=== PATIENT | male | born 1960 | race Caucasian/White ===

== ENCOUNTER 2021-04-23 13:24 | Emergency (ER) | payer MEDICAID ==
[~2021-04-23] VITALS: Ht 177.8 cm; Wt 81.6 kg
[2021-04-23 13:30] VITALS: BP_SYST 140
--- NOTE | 2021-04-23 13:30 | NUR ---
Pt to tent for evaluation.
--- NOTE | 2021-04-23 13:35 | NUR ---
Pt is unvaccinated and reports headaches, body aches, fatigue, feels disoriented X 7 days. Pt denies any prior medical history and denies pain currently.
--- NOTE | 2021-04-23 14:05 | NUR ---
Dr. El to tent to evaluate.
--- NOTE | 2021-04-23 14:15 | NUR ---
Pt refused Covid swab.
[2021-04-23] MEDS ORDERED: IBUP-1969 PO (14:28)
[2021-04-23] MEDS ORDERED: KETOROLAC TROMETHAMINE 60 MG/2 ML VIAL IM ONE (14:30)
--- NOTE | 2021-04-23 15:20 | NUR ---
Pt eloped from tent without notifying staff.
== END 2021-04-23 15:20 | disposition home or self-care (01) ==
LOC: SED 13:24
DX: B34.9 Viral infection, unspecified (principal); I10 Essential (primary) hypertension; F17.210 Nicotine dependence, cigarettes, uncomplicated; Z71.6 Tobacco abuse counseling; Z20.822 Contact with and (suspected) exposure to COVID-19; Z79.899 Other long term (current) drug therapy
CPT/HCPCS: 87426; 99283; J1885; 36415